=== PATIENT | male | born 1955 | race Caucasian/White ===

== ENCOUNTER → 2017-11-29 | Outpatient (CLI) | payer OTHER ==
[~2017-11-29] MED LIST: ASA81 MG PO; LYRICA 75MG75 MG PO; PROVENTIL 0.083%3 ML INH; Z.0.CARVEDILOL25 MG PO; Z.0.CLOPIDOGREL75 MG PO; Z.0.ECOTRIN325 MG PO; Z.0.FLOMAX0.4 MG PO; Z.0.GABAPENTIN100 MG PO; Z.0.HEMOCYTE PLUS1 E PO; Z.0.ISOSORBIDE DINI3 PO; Z.0.LASIX20 MG PO; Z.0.LEVAQUIN500 MG PO; Z.0.LIPITOR40 MG PO; Z.0.LIPITOR80 MG PO; Z.0.LISINOPRIL40 MG PO; Z.0.NORCO 5-325 TA1 PO; Z.0.PROTONIX40 MG PO; [UNRECOGNIZED DRUG - OTHER] PO
--- NOTE | 2017-11-29 11:55 | Diagnostic Imaging Report ---
PROCEDURE: Frontal and lateral views of the chest. COMPARISON: Patients [facility], DX, CHEST 2 VIEWS, 11/08/2017, 10:12. INDICATIONS: BRONCHITIS FINDINGS: Lines/tubes: None. Lungs: Patchy density in the left lung base with obscuration of the left hemidiaphragm and silhouetting of the left cardiac shadow, and increased density in the infrahilar region posteriorly on the lateral view may reflect developing pneumonia in the proper clinical setting. Pleura: There is no pleural effusion or pneumothorax. Heart and mediastinum: The cardiac silhouette is moderately enlarged. Median sternotomy wires. Bones: No acute bony abnormality. IMPRESSION: 1. Possible developing pneumonia left lower lobe pneumonia in a proper clinical setting. Recommend followup chest PA and lateral views in 4-6 weeks after treatment to document resolution. 2. Moderate cardiomegaly. Cliff Wheeler M.D. Dictated by: Cliff Wheeler M.D. on 11/29/2017 at 12:03 Electronically approved by: Cliff Wheeler M.D. on 11/29/2017 at 12:03
== END ==
LOC: RAD 10:58
PROVIDERS: ATTEND Family Medicine
DX: J20.8 Acute bronchitis due to other specified organisms (principal)
CPT/HCPCS: 71020